=== PATIENT | female | born 1980 | race Caucasian/White ===

== ENCOUNTER 2022-02-20 08:55 | Outpatient (CLI) | payer OTHER, SELFPAY ==
[2022-02-20 11:09] LABS: Albumin* 4.4 g/dL (3.3-5.0); Chloride* 99 mmol/L (96-114)
[2022-02-20 11:10] LABS: Potassium* 4.1 mmol/L (3.6-5.1); Sodium* 135 mmol/L (135-149)
[2022-02-20 11:12] LABS: Alkaline Phosphatase* 68 U/L (40-150); Aspartate Amino Transferase* 22 U/L (12-35); Bilirubin Total* 0.5 mg/dL (0.1-1.5); Blood Urea Nitrogen* 17 mg/dL (5-24); Carbon Dioxide* 27 mmol/L (20-32); Cholesterol* 234 mg/dL (90-199); Creatinine* 0.7 mg/dL (0.5-1.5); Estimated Glomerular Filt Rate 111 ml/min; Glucose* 96 mg/dL (60-115); Total Protein* 7.1 g/dL (6.0-8.3); Triglycerides* 81 mg/dL (40-149)
[2022-02-20 11:13] LABS: Alanine Aminotransferase* 24 U/L (4-35); Calcium* 9.4 mg/dL (8.4-10.6); HDL Cholesterol* 51 mg/dL (>=50); LDL Cholesterol Calculated 167 mg/dL (<100)
[2022-02-20 11:19] LABS: TSH With Reflex to FT4* 0.685 uIU/mL (0.270-4.200)
== END 2022-02-20 08:56 | disposition home or self-care (01) ==
PROVIDERS: PCP Family Medicine; Visit Provider Obstetrics & Gynecology
DX: Z00.00 Encounter for general adult medical examination without abnormal findings (principal); Z13.6 Encounter for screening for cardiovascular disorders; Z13.29 Encounter for screening for other suspected endocrine disorder
CPT/HCPCS: 80053; 80061; 84443

== ENCOUNTER 2022-04-24 08:04 | Outpatient (CLI) | payer BC, SELFPAY ==
--- NOTE | 2022-04-24 08:15 | CRLHL7_ITS ---
For Patients: As a result of the Century Cures Act, medical imaging exams and procedure reports are released immediately into your electronic medical record. You may view this report before your referring provider. If you have questions, please contact your health care provider. BILATERAL SCREENING MAMMOGRAM WITH COMPUTER-AIDED DETECTION AND TOMOSYNTHESIS TECHNIQUE: CC and MLO views were obtained. These mammographic images have been obtained using full-field digital technique. These mammographic images were interpreted with the benefit of computer-aided detection. Breast Tomosynthesis was used in this interpretation. COMPARISON FILM: 10/31/20. FINDINGS: The breasts are heterogeneously dense, which may obscure small masses IMPRESSION: There is no radiographic evidence for malignancy. ASSESSMENT: BI-RADS Category 1: Negative RECOMMENDATION: Routine screening mammogram in 1 year. A lay language report of this examination will be provided to the patient. David Pate M.D. Diagnostic Radiologist [email or web address] JAY/Dictated by: David Pate MD @ 04/24/2022 9:29:00 AM (Electronically Signed)
== END 2022-04-24 08:05 | disposition home or self-care (01) ==
LOC: MAMMO 08:07
PROVIDERS: PCP Family Medicine; Visit Provider Family Medicine
DX: Z12.31 Encounter for screening mammogram for malignant neoplasm of breast (principal); R92.2 Inconclusive mammogram
CPT/HCPCS: 77063; 77067

== ENCOUNTER 2023-11-16 08:03 | Outpatient (CLI) | payer BC, SELFPAY ==
--- NOTE | 2023-11-16 08:15 | CRLHL7_ITS ---
For Patients: As a result of the Century Cures Act, medical imaging exams and procedure reports are released immediately into your electronic medical record. You may view this report before your referring provider. If you have questions, please contact your health care provider. BILATERAL SCREENING MAMMOGRAM WITH COMPUTER-AIDED DETECTION AND TOMOSYNTHESIS TECHNIQUE: CC and MLO views were obtained. These mammographic images have been obtained using full-field digital technique. These mammographic images were interpreted with the benefit of computer-aided detection. Breast Tomosynthesis was used in this interpretation. COMPARISON FILM: 04/24/22, 10/31/20. FINDINGS: There are scattered areas of fibroglandular density. IMPRESSION: There is no radiographic evidence for malignancy. ASSESSMENT: BI-RADS Category 1: Negative RECOMMENDATION: Routine screening mammogram in 1 year. A lay language report of this examination will be provided to the patient. David Pate M.D. Diagnostic Radiologist [email or web address] SP/Dictated by: David Pate MD @ 11/16/2023 10:08:00 AM (Electronically Signed)
== END 2023-11-16 08:04 | disposition home or self-care (01) ==
LOC: MAMMO 08:05
PROVIDERS: PCP Family Medicine; Visit Provider Family Medicine
DX: Z12.31 Encounter for screening mammogram for malignant neoplasm of breast (principal)
CPT/HCPCS: 77063; 77067

== ENCOUNTER 2024-12-16 08:02 | Outpatient (CLI) | payer BC, SELFPAY ==
--- NOTE | 2024-12-16 08:15 | CRLHL7_ITS ---
For Patients: As a result of the Century Cures Act, medical imaging exams and procedure reports are released immediately into your electronic medical record. You may view this report before your referring provider. If you have questions, please contact your health care provider. INDICATION: BILATERAL SCREENING MAMMOGRAM, ASYMPTOMATIC 44 Y/O FEMALE COMPARISON: 11/16/2023, 04/24/2022, 11/07/2020 TECHNIQUE: Digital mammogram in CC and MLO projections including computer-aided detection (CAD) and tomosynthesis. BREAST COMPOSITION: The breasts are heterogeneously dense, which may obscure small masses. FINDINGS: No suspicious findings. ASSESSMENT: BI-RADS 1 Negative RECOMMENDATION: Annual screening mammogram. A lay language report of this examination will be provided to the patient. Dictated by: David Pate MD @ 12/16/2024 09:56:05 (Electronically Signed)
== END 2024-12-16 08:03 | disposition home or self-care (01) ==
LOC: MAMMO 08:02
PROVIDERS: PCP Family Medicine; Visit Provider Family Medicine
DX: Z12.31 Encounter for screening mammogram for malignant neoplasm of breast (principal); R92.333 Mammographic heterogeneous density, bilateral breasts
CPT/HCPCS: 77063; 77067